=== PATIENT | female | born 1965 | race African-American/Black ===

== ENCOUNTER 2019-07-25 14:48 | Inpatient (IN) | payer MEDICAID ==
[~2019-07-25] VITALS: Ht 163.8 cm; Wt 92.0 kg
[2019-07-25] MEDS ORDERED: VERAPAMIL ER240 MG ORAL (14:58)
--- NOTE | 2019-07-25 15:04 | NUR ---
ED Nurse Note: Pt walked into ED w/ c/o RLE pain that is radiating up to hip for 2 weeks. Pain is 8/10. R thigh has swelling but not hot to touch or redness. Pt also feels as if SOB for 2 weeks, hx of asthma. Pt lungs clear bilateral to auscultation. Pt is alert and orientedx4, ambulatory.
[2019-07-25 15:07] VITALS: BP 190/91
--- NOTE | 2019-07-25 15:09 | NUR ---
ED Nurse Note:\ MD aware BP 190/91. Pt states it is basline BP.
[2019-07-25] MEDS ORDERED: Tylenol #3 tab (300mg/30mg) ORAL ONE (16:00)
--- NOTE | 2019-07-25 16:53 | Emergency Room Report ---
History of Present Illness General Chief Complaint: Pain Source: Patient (Vandana Nicholas) Present Illness HPI 33-year-old female presents to the emergency department complaining of 9 out of 10 severity progressive right thigh pain with associated swelling and "knot" feeling x2 weeks. Patient reports she also felt as though she needed to catch her breath several times throughout the 2 weeks she states at 1 point she even felt little palpitations. That resolved on their own. Patient states she was not overly exerting herself when this happened. Patient reports history of high blood pressure, asthma and anemia. She denies cough or wheezing. She denies fevers or chills. Patient denies any notable insect bites or wounds near the affected area. Patient reports pain is exacerbated upon walking. She denies trauma or fall. She denies smoking hx, recent travel or estrogen use. She denies chest pain, dizziness, syncope or headache. Pt. reports earlier today when she felt SOB she felt a bit lightheaded but both SOB and lightheadedness resolved when she went outside for fresh air. COVID-19 risk:Contact w/high r: No COVID-19 risk:Travel to affect: No Has patient experienced barton: No (Vandana Nicholas) Allergies: Coded Allergies: No Known Allergies (Unverified , 07/25/19) Patient History Past Medical History: see triage record Past Surgical History: none Pertinent Family History: none Reviewed Nursing Documentation: PMH: Agreed; PSxH: Agreed (Vandana Nicholas) Nursing Documentation-PMH Past Medical History: No History, Except For Hx Hypertension: Yes - anemia (Vandana Nicholas) Review of Systems All Other Systems: negative except mentioned in HPI (Vandana Nicholas) Physical Exam Vital Signs Date Time Temp Pulse Resp B/P (MAP) Pulse Ox O2 Delivery O2 Flow Rate FiO2 07/25/19 14:54 98.1 88 18 195/92 (126) 96 Room Air Sp02 EP Interpretation: reviewed, normal General Appearance: no apparent distress, alert, GCS 15, non-toxic Head: normocephalic, atraumatic Eyes: bilateral eye normal inspection, bilateral eye PERRL ENT: hearing grossly normal, normal voice Neck: full range of motion Respiratory: chest non-tender, lungs clear, normal breath sounds, no respiratory distress, no accessory muscle use, no wheezing, speaking full sentences Cardiovascular #1: regular rate, rhythm, no edema, normal capillary refill Cardiovascular #2: 1+ dorsalis pedis (R) - post. tibial Musculoskeletal: normal range of motion, no calf tenderness, gait/station normal, tender - TTP to superficial ttp of the ST of the right medial thigh, swelling - Right inner thigh swelling Neurologic: alert, motor strength/tone normal, oriented x3, sensory intact, responsive, speech normal Psychiatric: judgement/insight normal Skin: other - mild erythema and palpation of rope like induration, mild warmth, Lymphatic: no adenopathy (Vandana Nicholas) Medical Decision Making PA Attestation Dr. Kingston Is my supervising Physician whom patient management has been discussed with. (Vandana Nicholas) Diagnostic Impression: Primary Impression: Pulmonary emboli Qualified Codes: I26.99 - Other pulmonary embolism without acute cor pulmonale Additional Impressions: Acute deep vein thrombosis of thigh Qualified Codes: I82.4Y1 - Acute embolism and thrombosis of unspecified deep veins of right proximal lower extremity Anemia Qualified Codes: D64.9 - Anemia, unspecified ER Course 33-year-old female presents to the emergency department complaining of 9 out of 10 severity progressive right thigh pain with associated swelling and "knot" feeling x2 weeks. Patient reports she also felt as though she needed to catch her breath several times throughout the 2 weeks she states at 1 point she even felt little palpitations. That resolved on their own. Patient states she was not overly exerting herself when this happened. Patient reports history of high blood pressure, asthma and anemia. She denies cough or wheezing. She denies fevers or chills. Patient denies any notable insect bites or wounds near the affected area. Patient reports pain is exacerbated upon walking. She denies trauma or fall. She denies smoking hx, recent travel or estrogen use. She denies chest pain, dizziness, syncope or headache. Pt. reports earlier today when she felt SOB she felt a bit lightheaded but both SOB and lightheadedness resolved when she went outside for fresh air. Ddx considered but are not limited to Cellulitis, DVT,varicose vein,Phlebitis, PAD,Venous insufficiency, femoral hernia, PE, or RI just to name a few. Vital signs: are WNL, pt. is afebrile H&PE are most consistent with possible DVT, Vs., cellulitis/phlebitis ORDERS: -CBC with Diff: Anemia hgb 7.9 -CMP: mildly elevated alk. phos -Troponin: 0.00 -PT/PTT: WNL ------ PT: 9.8. INR: 0.9 PTT: 1.2 -ABO: B POSITIVE Venous Duplex US Right Lower Extremity: POSITIVE FOR ACUTE DVT GREATER SAPHENOUS VEIN. ED INTERVENTIONS: -Tylenol # 3 PO - Heparin 7000 Units - IV Bolus - Heparin Drip : Maintenance -80 mg verapamil p.o. DISPOSITION: at this time pt. will be admitted to Dr. Machuca for bilateral pulmonary emboli in addition to acute DVT of the right lower extremity. Dr. Machuca agreed to admit the pt. and to continue pt. care management. Labs Test 07/25/19 17:01 White Blood Count 8.8 K/UL (4.8-10.8) Red Blood Count 4.40 M/UL (4.20-5.40) Hemoglobin 7.9 G/DL (12.0-16.0) Hematocrit 26.6 % (37.0-47.0) Mean Corpuscular Volume 60 FL (80-99) Mean Corpuscular Hemoglobin 17.9 PG (27.0-31.0) Mean Corpuscular Hemoglobin Concent 29.6 G/DL (32.0-36.0) Red Cell Distribution Width 18.9 % (11.6-14.8) Platelet Count 368 K/UL (150-450) Mean Platelet Volume 8.0 FL (6.5-10.1) Neutrophils (%) (Auto) % (45.0-75.0) Lymphocytes (%) (Auto) % (20.0-45.0) Monocytes (%) (Auto) % (1.0-10.0) Eosinophils (%) (Auto) % (0.0-3.0) Basophils (%) (Auto) % (0.0-2.0) Differential Total Cells Counted 100 Neutrophils % (Manual) 77 % (45-75) Lymphocytes % (Manual) 18 % (20-45) Monocytes % (Manual) 5 % (1-10) Eosinophils % (Manual) 0 % (0-3) Basophils % (Manual) 0 % (0-2) Band Neutrophils 0 % (0-8) Platelet Estimate Adequate Platelet Morphology Normal Hypochromasia 1+ Anisocytosis 1+ Prothrombin Time 9.8 SEC (9.30-11.50) Prothromb Time International Ratio 0.9 (0.9-1.1) Activated Partial Thromboplast Time 22 SEC (23-33) Sodium Level 141 MMOL/L (136-145) Potassium Level 4.0 MMOL/L (3.5-5.1) Chloride Level 105 MMOL/L (98-107) Carbon Dioxide Level 26 MMOL/L (21-32) Anion Gap 11 mmol/L (5-15) Blood Urea Nitrogen 10 mg/dL (7-18) Creatinine 1.1 MG/DL (0.55-1.30) Estimat Glomerular Filtration Rate > 60 mL/min (>60) Glucose Level 89 MG/DL (74-106) Calcium Level 9.2 MG/DL (8.5-10.1) Total Bilirubin 0.5 MG/DL (0.2-1.0) Aspartate Amino Transf (AST/SGOT) 23 U/L (15-37) Alanine Aminotransferase (ALT/SGPT) 11 U/L (12-78) Alkaline Phosphatase 118 U/L (46-116) Troponin I 0.000 ng/mL (0.000-0.056) Total Protein 8.1 G/DL (6.4-8.2) Albumin 3.5 G/DL (3.4-5.0) Globulin 4.6 g/dL Albumin/Globulin Ratio 0.8 (1.0-2.7) (Vandana Nicholas) ER Course Please see above note. Patient examined by me. I was directly involved with her care and treatment. Heparin begun. Discussed with CHIOMA NOBLE and patient non-transferrable. Discussed with Dr. Machuca. (Mohsen Kingston MD) EKG Diagnostic Results EP Interpretation: Dr. Kingston Rate: normal - 75 bpm Rhythm: NSR ST Segments: no acute changes ASA given to the pt in ED: No PA Scribe Text This Interpretation was scribed by YURIY Nicholas. (aVndana Nicholas) Rhythm Strip Diag. Results EP Interpretation: yes Rhythm: NSR, no PVC's, no ectopy (Mohsen Kingston MD) CT/MRI/US Diagnostic Results CT/MRI/US Diagnostic Results #1: Imaging Test Ordered: Venous Duplex US Right LE Impression ! POSITIVE for Acute DVT of the great saphenous vein. CT/MRI/US Diagnostic Results #2: Imaging Test Ordered: CTA Chest w. contrast. Impression " Segmental left and segmental right lower lobe pulmonary emboli. No evidence of right heart strain. Incidental finding of right hydronephrosis." Per official radiology report- Please see report for specific details. (Vandana Nicholas) Last Vital Signs Date Time Temp Pulse Resp B/P (MAP) Pulse Ox O2 Delivery O2 Flow Rate FiO2 07/25/19 15:07 98.1 79 20 190/91 97 Room Air (Vandana Nicholas) Last Vital Signs Date Time Temp Pulse Resp B/P (MAP) Pulse Ox O2 Delivery O2 Flow Rate FiO2 07/26/19 00:21 67 21 150/87 98 Room Air 07/25/19 18:19 98.1 Status: improved (Mohsen Kingston MD) Disposition: ADMITTED INPATIENT Condition: Serious Referrals: [facility],REFERRING (PCP) Vandana Nicholas Jul 25, 2019 16:53 Mohsen Kingston MD Jul 25, 2019 19:40
[2019-07-25] MEDS ORDERED: Omnipaque 350 100ml vial INJ PRN (17:15)
--- NOTE | 2019-07-25 17:21 | Diagnostic Imaging Report ---
EXAM: US Duplex Right Lower Extremity Veins CLINICAL HISTORY: PAIN TECHNIQUE: Real-time duplex ultrasound scan of the right lower extremity veins integrating B-mode two-dimensional vascular structure, Doppler spectral analysis, color flow Doppler imaging and compression. COMPARISON: No relevant prior studies available. FINDINGS: Deep veins: Unremarkable. No DVT in the visualized common femoral, femoral, proximal deep femoral or popliteal veins. The veins demonstrate normal color flow, are normally compressible, with normal phasic flow and/or augmentation response. Superficial veins: Right greater saphenous venous thrombosis. Clot extends to the right common femoral vein, slightly protruding into the CFV. This may qualify as a DVT from a management perspective. IMPRESSION: Right greater saphenous venous thrombosis. Clot extends to the right common femoral vein, slightly protruding into the CFV. This may qualify as a DVT from a management perspective. <MYCVCSECTION> Communications: 07/25/19 17:36 Verify Receipt Verified receipt with Olga in ER confirmed with YURIY Nicholas on 07/24 17:36 (-07:00)
[2019-07-25 17:23] LABS: HEMATOCRIT 26.6 % (37.0-47.0); HEMOGLOBIN 7.9 G/DL (12.0-16.0); MEAN CORPUSCULAR VOLUME 60 FL (80-99); PLATELET COUNT 368 K/UL (150-450); RED CELL DISTRIBUTION WIDTH 18.9 % (11.6-14.8); WHITE BLOOD COUNT 8.8 K/UL (4.8-10.8)
[2019-07-25 17:28] LABS: INR 0.9 (0.9-1.1)
[2019-07-25 17:30] LABS: ANION GAP 11 mmol/L (5-15); BLOOD UREA NITROGEN 10 mg/dL (7-18); CALCIUM 9.2 MG/DL (8.5-10.1); CARBON DIOXIDE 26 MMOL/L (21-32); CHLORIDE 105 MMOL/L (98-107); CREATININE 1.1 MG/DL (0.55-1.30); SODIUM 141 MMOL/L (136-145)
[2019-07-25 17:35] LABS: ALANINE AMINOTRANSFERASE 11 U/L (12-78); ALBUMIN 3.5 G/DL (3.4-5.0); ALBUMIN/GLOBULIN RATIO 0.8 (1.0-2.7); ALKALINE PHOSPHATASE 118 U/L (46-116); ASPARTATE AMINO TRANSFERASE 23 U/L (15-37); BILIRUBIN,TOTAL 0.5 MG/DL (0.2-1.0)
--- NOTE | 2019-07-25 17:43 | NUR ---
ED Nurse Note: Pt taken to CTA.
[2019-07-25 18:19] VITALS: BP 189/90
--- NOTE | 2019-07-25 18:50 | Diagnostic Imaging Report ---
EXAM: CT Angiography Chest With Intravenous Contrast CLINICAL HISTORY: PAIN TECHNIQUE: Axial computed tomographic angiography images of the chest with intravenous contrast. CTDI is 56.6 mGy and DLP is 332.6 mGy-cm. One or more of the following dose reduction techniques were used: automated exposure control, adjustment of the mA and/or kV according to patient size, use of iterative reconstruction technique. MIP reconstructed images were created and reviewed. COMPARISON: No relevant prior studies available. FINDINGS: Pulmonary arteries: Segmental left and subsegmental right lower lobe pulmonary emboli. Aorta: No acute findings. No thoracic aortic aneurysm. Lungs: Unremarkable. No mass. No consolidation. Pleural space: Unremarkable. No significant effusion. No pneumothorax. Heart: Unremarkable. No cardiomegaly. No significant pericardial effusion. No evidence of RV dysfunction. Bones/joints: No acute fracture. No dislocation. Soft tissues: Limited assessment of the upper abdomen demonstrates right hydronephrosis of uncertain chronicity. Correlate for flank pain.. Lymph nodes: Unremarkable. No enlarged lymph nodes. IMPRESSION: Segmental left and subsegmental right lower lobe pulmonary emboli. No evidence of right heart strain. Right hydronephrosis of uncertain chronicity. Correlate for flank pain. <MYCVCSECTION> Communications: 07/25/19 18:42 Call Doctor Regarding Pulmonary Embolism, called Dr. Nicholas on 07/24 18:42 (-07:00)
--- NOTE | 2019-07-25 18:52 | NUR ---
HAND-OFF: Report given to Olga VALENTIN.
[2019-07-25] MEDS ORDERED: Heparin 5000 units/ml inj IV ONE (19:00)
--- NOTE | 2019-07-25 19:15 | NUR ---
ED Nurse Note: received report from Lyric VALENTIN. pt livs, kayden. will continue to monitor patient.
[2019-07-25 20:00] VITALS: BP 173/82
[2019-07-25] MEDS ORDERED: Heparin 25,000u/D5W 500ml 500 ML IV SCH (20:15)
[2019-07-25] MEDS ORDERED: Verapamil 80mg tab ORAL ONE (20:15)
[2019-07-25 22:00] VITALS: BP 157/77
--- NOTE | 2019-07-25 22:13 | NUR ---
ED Nurse Note: pt is placed on hospital bed. karen, kayden.
[2019-07-26 00:21] VITALS: BP 150/87
[2019-07-26] MEDS ORDERED: HYDROcodone/Acetamin 5/325 tab ORAL ONE (01:30)
--- NOTE | 2019-07-26 03:36 | NUR ---
ED Nurse Note: PTT RESULTED. PER HEPARIN DRIP PROTOCOL, RATE WILL NOT BE CHANGED. ERMD NOTIFIED OF THE RESULT. WILL CONTINUE TO MONITOR PATIENT.
[2019-07-26 04:00] VITALS: BP 124/59
--- NOTE | 2019-07-26 04:30 | NUR ---
Note mary in EDM - 07/26/19 at 0529 by [email or web address] ED Nurse Note: pt is placed on hospital bed. kayden jones.
[2019-07-26 07:00] VITALS: BP 148/73
--- NOTE | 2019-07-26 07:11 | NUR ---
HAND-OFF: Report given to Reba Christian RN. Endorsed plan of care
--- NOTE | 2019-07-26 07:41 | NUR ---
ED Nurse Note: Received pt from Ren Ramirez RN. Pt on rufus bed, awake and alert, VSS, afebrile. Pt denies any feeling of pain nor discomfort.
--- NOTE | 2019-07-26 07:56 | NUR ---
ED Nurse Note: Ordered PTT recheck at 0820.
--- NOTE | 2019-07-26 08:20 | NUR ---
ED Nurse Note: Obtained blood specimen for PTT; sent to labs.
--- NOTE | 2019-07-26 08:50 | NUR ---
TRANSFER TO FLOOR: Patient transferred to Telemetry Unit as ordered, per Dr. Daigle. Report given to Fer VALENTIN. Belongings and medications given to primary RN. Family and or S/O informed of transfer.
--- NOTE | 2019-07-26 09:10 | NUR ---
NURSE NOTES: Received report from HOMERO Velazquez. Patient AOx4, on room air, denies pain at this time. Patient transferred from ED to tele. Belonging list checked with RN, Patient has leija at the bedside, refused to put in safe, per patient "It's my sister's rent money, she will pick it up". Endorsed heparin drip since last night. Patient SR with HR 71. compliance monitor on, IV on left AC 20G, asymptomatic, patent, intact. Bed in lowest position, side rails upx2, call light within reach. Will continue to monitor.
[2019-07-26] MEDS ORDERED: FERROUS SULFAT325 MG ORAL (09:14)
--- NOTE | 2019-07-26 09:20 | NUR ---
NURSE NOTES: Patient Aox4, educated for PE and DVT on the leg, RN informed and educated ambulation at this time may risk clot to travel.
--- NOTE | 2019-07-26 10:15 | NUR ---
NURSE NOTES: Paged Dr. Machuca for admission order. Order noted, entered, carried out. Per MD continue heparin drip per pharmacy. Will continue to monitor. Confirmed with pharmacist regard PTT, since last PTT 0820 07/26/19 was therapeutic next PTT will be tomorrow am. Order entered, carried out.
[2019-07-26] MEDS ORDERED: Heparin 25,000u/D5W 500ml 500 ML IV SCH (10:20)
[2019-07-26 12:00] VITALS: BP 158/91
--- NOTE | 2019-07-26 12:59 | History and Physical Report ---
DATE OF ADMISSION: 07/26/2019 HISTORY OF PRESENT ILLNESS: This is a 53-year-old female, who came to the hospital with right calf and thigh pain. She states that the pain began about two weeks ago with pain below the knee. She denies any history of immobilization, trauma, or surgery. There is no history of travel. She came massaging her calf and knee. However, yesterday she felt that the pain got worse and progressed to her thigh. She then became short of breath. She came to the emergency room where she was worked up. She was found evidence of a DVT in the right lower extremity as well as bilateral pulmonary emboli. The patient has a history of hypertension and a remote history of anemia for which she was transfused three years ago. She is unclear about the origin of her anemia. She also reports history of asthma. Travel history, none. Fever and cough, none. HOME MEDICATIONS: Include verapamil. ALLERGIES: None reported. REVIEW OF SYSTEMS: Denies any headaches, hematemesis, melena, hematochezia, or weight loss. PAST SURGICAL HISTORY: None. PHYSICAL EXAMINATION: GENERAL: Reveals a 53-year-old female. VITAL SIGNS: Blood pressure is 140/70, heart rate is 74, respirations 20, O2 saturation 100% on room air. HEENT: Unremarkable. LUNGS: Clear breath sounds bilaterally with normal heart sounds. ABDOMEN: Soft. EXTREMITIES: There is no edema. Right lower extremity is mildly tender. LABORATORY DATA: Lab testing shows a hemoglobin 7.8, otherwise normal CBC and BMP. Alkaline phosphatase 118. Imaging studies show venous duplex with right greater saphenous vein thrombosis with the clot extending in the right common femoral vein into the common femoral vein. She also underwent a CT of the chest with IV contrast, which shows segmental left and subsegmental right old pulmonary emboli. IMPRESSION: 1. DVT. 2. Pulmonary embolism. 3. History of anemia. 4. Hypertension. DISCUSSION: Admit to the hospital. We will start intravenous heparin. We will consult Hematology. Continue hypertensives. We will follow carefully. Jose Antonio Machuca M.D. DR: JOSE/ROBERT JOB#: [id number] CC:
[2019-07-26 16:00] VITALS: BP 135/87
--- NOTE | 2019-07-26 16:00 | NUR ---
NURSE NOTES: Paged Dr. Machuca regarding patient c/o headache 01/13, constant. Awaiting for callback. Will continue to monitor.
--- NOTE | 2019-07-26 16:42 | NUR ---
NURSE NOTES: Per Dr. Machuca Tylenol q6h, 650mg PO, Order noted, entered, carried out. Per MD not recommend strong pain med since patient on heparin Drip.
--- NOTE | 2019-07-26 19:00 | NUR ---
NURSE NOTES: Received report from HOMERO Girard Patient is awake, sitting on bed. A/Ox4. Able to make needs known with assistance. Denies pain at this time. No signs of acute distress noted. Checked IV site and flushed with ongoing heparin drip as prescribed. No erythema, bleeding or infiltration noted. No signs of bleeding noted. Bed at lowest position, brakes on, siderailsx2. Call light within reach. Will continue to monitor.
--- NOTE | 2019-07-26 19:13 | NUR ---
HAND-OFF: Report given to HOMERO Serna. Endorsed plan of care.
[2019-07-26 20:00] VITALS: BP 140/92
--- NOTE | 2019-07-26 21:14 | Consultation ---
History of Present Illness General Chief Complaint: Pain Present Illness Allergies: Coded Allergies: IBUPROFEN (Verified Allergy, Mild, 07/26/19) spasm Medication History Scheduled Ferrous Sulfate* (Ferrous Sulfate*), 325 MG ORAL DAILY, (Reported) Verapamil Hcl* (Calan Sr*), 240 MG ORAL DAILY, (Reported) Patient History Healthcare decision maker Sister Kelley Puentes, Meaghan Buchanan Resuscitation status Full Code Advanced Directive on File Physical Exam Last 24 Hour Vital Signs Date Time Temp Pulse Resp B/P (MAP) Pulse Ox O2 Delivery O2 Flow Rate FiO2 07/26/19 16:00 70 07/26/19 16:00 98.1 81 19 135/87 (103) 95 07/26/19 12:59 65 163/99 07/26/19 12:00 97.7 73 19 158/91 (113) 95 07/26/19 12:00 65 07/26/19 09:21 Room Air 07/26/19 08:50 97.7 71 20 146/74 100 Room Air 07/26/19 07:00 97.7 66 14 148/73 100 Room Air 07/26/19 04:00 98.4 71 20 124/59 98 Room Air 07/26/19 02:10 98.1 07/26/19 00:21 67 21 150/87 98 Room Air 07/25/19 22:00 75 18 157/77 98 Room Air Intake and Output 07/25/19 07/26/19 19:00 07:00 Intake Total 0 ml Balance 0 ml Intake Oral 0 ml Laboratory Tests Test 07/26/19 02:20 07/26/19 08:20 Activated Partial Thromboplast Time 70 SEC (23-33) H 72 SEC (23-33) H Height (Feet): 5 Height (Inches): 4.50 Weight (Pounds): 198 Medications Current Medications Medications (Trade) Dose Ordered Sig/Wesley Route PRN Reason Start Time Stop Time Status Last Admin Dose Admin Acetaminophen (Tylenol) 650 mg Q6H PRN ORAL Mild Pain/Temp > 100.5 07/26/19 16:45 08/25/19 16:44 07/26/19 16:55 Ferrous Sulfate (Feosol) 325 mg DAILY ORAL 07/26/19 12:00 10/24/19 11:59 07/26/19 12:59 Heparin Sodium/ Dextrose 500 ml @ 32.332 mls/ hr ADJUST PER PROTOCOL IV 07/26/19 10:20 08/25/19 10:19 07/26/19 10:34 Verapamil HCl (Calan SR) 240 mg DAILY ORAL 07/26/19 12:00 08/25/19 11:59 07/26/19 12:59 Assessment/Plan Assessment/Plan: Heme Consult MADI MD: Matt Machuca DOS: 07/26/2019 RFC: DVt and PE HPI 33-year-old female presents to the emergency department complaining of 9 out of 10 severity progressive right thigh pain with associated swelling and "knot" feeling x2 weeks. Patient reports she also felt as though she needed to catch her breath several times throughout the 2 weeks she states at 1 point she even felt little palpitations. That resolved on their own. Patient states she was not overly exerting herself when this happened. Patient reports history of high blood pressure, asthma and anemia. She denies cough or wheezing. She denies fevers or chills. Patient denies any notable insect bites or wounds near the affected area. Patient reports pain is exacerbated upon walking. She denies trauma or fall. She denies smoking hx, recent travel or estrogen use. She denies chest pain, dizziness, syncope or headache. Pt. reports earlier today when she felt SOB she felt a bit lightheaded but both SOB and lightheadedness resolved when she went outside for fresh air. Imaging since admission has been reviewed and currently is on heparin gtt, i dw pcp. COVID-19 risk:Contact w/high r: No COVID-19 risk:Travel to affect: No Has patient experienced barton: No Allergies: Coded Allergies: No Known Allergies (Unverified , 07/25/19) Patient History Past Medical History: see triage record Past Surgical History: none Pertinent Family History: none Reviewed Nursing Documentation: PMH: Agreed; PSxH: Agreed (Vandana Nicholas) Nursing Documentation-PMH Past Medical History: No History, Except For Hx Hypertension: Yes - anemia ROS (review of systems): Constitutional: No fever, no chills, no night sweats, no fatigue Skin: No rashes, lumps, itchiness, dryness HEENT: No ALBERTS, ear ache, visual changes, double vision, nosebleeds Breasts: No lumps, pain, discharge Pulmonary: ++ sob is noted on admission Cardiovascular: No chest pain, tightness, palpitations, syncope, PND GI: No nausea, vomiting, diarrhea, melena, hematochezia, change in appetite, : No dysuria, frequency, urgency, urinary incontinence, foamy urine Musculoskeleta ++ lower ext leg swelling Neurologic: No dizziness, fainting, seizures, changes in smell or taste Psychiatric: No nervousness, stress, or depression, anxiety, hallucinations Endocrine: No weight change, heat or cold intolerance, tremor, insomnia Physical Exam: Vitals: reviewed General: NAD HEENT: nc, at Neck: supple Chest: clear breath sounds bilaterally Cardiovascular: RRR, no s3, s4 Abdomen: soft, nontender, nd Extremities: no cce, normal range of motion Neuro: alert and oriented Labs: noted Imaging: reviewed Assessment and Recs # Pulmonary emboli noted on admission with out right heart strain with a likely pre-existing dvt -> CAUSE is yet uncertain, is essentially unprovoked --> this patient, given her young agre requires a hypercoagulable workup --> I have ordered a lupus anticoagulant, she needs to f/u with hematology once out of the acute episdoe --> agree to continue on heparin gtt --> lupus anticoag ordered # Dvt of the lower ext right leg --> continue on heparin gtt --> will need 3 months of anticoag # Anemia of chronic disease due to underlying chronic medical issues, multifactorial v Gi bleed --> Anemia workup has been ordered, rule out gi bleed --> No evidence of hemolysis is noted, peripheral smear has been reviewed. --> Hgb goal >7. Transfuse prn. --> Epogen or iron at this time is not particularly indicated --> Medications have been reviewed --> low threshold for gi evaluation in case has occult + --> bone marrow biopsy is not indicated given the other more likely causes # HTN --> sbp goal <130 # Obesity --> recommend weight loss --> acitivity # Dvt ppx heparn gtt The timing of this note does not necessarily reflect the time of the patient was seen. Greatly appreciate consultation. Farrukh Velasquez MD Jul 26, 2019 21:14
[2019-07-27] VITALS: BP 134/79
--- NOTE | 2019-07-27 01:46 | NUR ---
NURSE NOTES: Resting throughout the night. No significant change of condition noted. Will continue to monitor.
[2019-07-27 04:00] VITALS: BP_SYST 145; BP_SYST 162; BP_DIAS 90
[2019-07-27 04:38] LABS: HEMATOCRIT 25.5 % (37.0-47.0); HEMOGLOBIN 7.6 G/DL (12.0-16.0); MEAN CORPUSCULAR VOLUME 62 FL (80-99); PLATELET COUNT 352 K/UL (150-450); RED BLOOD COUNT 4.12 M/UL (4.20-5.40); RED CELL DISTRIBUTION WIDTH 16.8 % (11.6-14.8); WHITE BLOOD COUNT 7.9 K/UL (4.8-10.8)
[2019-07-27 05:30] LABS: FERRITIN 5 NG/ML (8-388)
--- NOTE | 2019-07-27 06:14 | NUR ---
NURSE NOTES: Received ptt result of 77. Per OM pipeline (Cira), to continue heparin drip @18U/kg/hr, next ptt tomorrow 0400. Noted and carried out.
[2019-07-27 06:29] LABS: % IRON SATURATION 5 % (15-50); IRON 18 ug/dL (50-175); TOTAL IRON BINDING CAPACITY 374 ug/dL (250-450)
--- NOTE | 2019-07-27 06:54 | Hematology/Onc Progress Note ---
Assessment/Plan Assessment/Plan Assessment and Recs # Pulmonary emboli noted on admission with out right heart strain with a likely pre-existing dvt -> CAUSE is yet uncertain, is essentially unprovoked --> this patient, given her young agre requires a hypercoagulable workup --> I have ordered a lupus anticoagulant, she needs to f/u with hematology once out of the acute episdoe --> agree to continue on heparin gtt --> lupus anticoag ordered, prothrombin, antithrombin # Dvt of the lower ext right leg --> continue on heparin gtt --> will need 3 months of anticoag --> consider apixaban as an outpatient for 3months once discharged if approved by pillowcase folder # Anemia of iron deficiency --> Anemia workup has been ordered, rule out gi bleed --> No evidence of hemolysis is noted, peripheral smear has been reviewed. --> Hgb goal >7. Transfuse prn. --> IRON IV x 5 days --> Medications have been reviewed --> low threshold for gi evaluation in case has occult + --> bone marrow biopsy is not indicated given the other more likely causes --> continue on po iron # HTN --> sbp goal <130 # Obesity --> recommend weight loss --> acitivity # Dvt ppx heparn gtt The timing of this note does not necessarily reflect the time of the patient was seen. Greatly appreciate consultation. Subjective Constitutional: Denies: no symptoms, chills, fever, malaise, weakness, other HEENT: Denies: no symptoms, eye pain, blurred vision, tearing, double vision, ear pain, ear discharge, nose pain, nose congestion, throat pain, throat swelling, mouth pain, mouth swelling, other Cardiovascular: Denies: no symptoms, chest pain, edema, irregular heart rate, lightheadedness, palpitations, syncope, other Gastrointestinal/Abdominal: Denies: no symptoms, abdomen distended, abdominal pain, black stools, tarry stools, blood in stool, constipated, diarrhea, difficulty swallowing, nausea, poor appetite, poor fluid intake, rectal bleeding , vomiting, other Genitourinary: Denies: no symptoms, burning, discharge, frequency, flank pain, hematuria, incontinence, pain, urgency, other Neurologic/Psychiatric: Denies: no symptoms, anxiety, depressed, emotional problems, headache, numbness, paresthesia, pre-existing deficit, seizure, tingling, tremors, weakness, other Endocrine: Denies: no symptoms, excessive sweating, flushing, intolerance to cold, intolerance to heat, increased hunger, increased thirst, increased urine, unexplained weight gain, unexplained weight loss, other Allergies: Coded Allergies: IBUPROFEN (Verified Allergy, Mild, 07/26/19) spasm Subjective 07/26 on heparin gtt, no bleeding, no night sweats, considering apixaban as outpatient Objective Objective Current Medications Medications (Trade) Dose Ordered Sig/Wesley Route PRN Reason Start Time Stop Time Status Last Admin Dose Admin Acetaminophen (Tylenol) 650 mg Q6H PRN ORAL Mild Pain/Temp > 100.5 07/26/19 16:45 08/25/19 16:44 07/26/19 16:55 Ferrous Sulfate (Feosol) 325 mg DAILY ORAL 07/26/19 12:00 10/24/19 11:59 07/26/19 12:59 Heparin Sodium/ Dextrose 500 ml @ 32.332 mls/ hr ADJUST PER PROTOCOL IV 07/26/19 10:20 08/25/19 10:19 07/26/19 10:34 Verapamil HCl (Calan SR) 240 mg DAILY ORAL 07/26/19 12:00 08/25/19 11:59 07/26/19 12:59 Last 24 Hour Vital Signs Date Time Temp Pulse Resp B/P (MAP) Pulse Ox O2 Delivery O2 Flow Rate FiO2 07/27/19 04:00 85 07/27/19 04:00 97.7 72 20 145/90 (108) 98 07/27/19 00:00 79 07/27/19 00:00 96.8 69 20 134/79 (97) 99 07/26/19 21:00 Room Air 07/26/19 20:00 98.1 69 20 140/92 (108) 99 07/26/19 20:00 71 07/26/19 16:00 70 07/26/19 16:00 98.1 81 19 135/87 (103) 95 07/26/19 12:59 65 163/99 07/26/19 12:00 97.7 73 19 158/91 (113) 95 07/26/19 12:00 65 07/26/19 09:21 Room Air 07/26/19 08:50 97.7 71 20 146/74 100 Room Air 07/26/19 07:00 97.7 66 14 148/73 100 Room Air 07/26/19 04:00 98.4 71 20 124/59 98 Room Air 07/26/19 02:10 98.1 07/26/19 00:21 67 21 150/87 98 Room Air 07/25/19 22:00 75 18 157/77 98 Room Air 07/25/19 20:43 65 195/85 07/25/19 20:00 67 21 173/82 98 Room Air 07/25/19 18:19 98.1 78 21 189/90 98 Room Air 07/25/19 16:49 98.1 07/25/19 15:07 98.1 79 20 190/91 97 Room Air 07/25/19 14:54 98.1 88 18 195/92 (126) 96 Room Air Intake and Output 07/26/19 07/27/19 19:00 07:00 Intake Total 240 ml 655.63 ml Balance 240 ml 655.63 ml Intake Oral 240 ml 300 ml IV Total 355.63 ml # Voids 2 1 Labs Test 07/25/19 17:01 07/26/19 02:20 07/26/19 08:20 07/27/19 04:15 White Blood Count 8.8 K/UL (4.8-10.8) 7.9 K/UL (4.8-10.8) Red Blood Count 4.40 M/UL (4.20-5.40) 4.12 M/UL (4.20-5.40) Hemoglobin 7.9 G/DL (12.0-16.0) 7.6 G/DL (12.0-16.0) Hematocrit 26.6 % (37.0-47.0) 25.5 % (37.0-47.0) Mean Corpuscular Volume 60 FL (80-99) 62 FL (80-99) Mean Corpuscular Hemoglobin 17.9 PG (27.0-31.0) 18.4 PG (27.0-31.0) Mean Corpuscular Hemoglobin Concent 29.6 G/DL (32.0-36.0) 29.7 G/DL (32.0-36.0) Red Cell Distribution Width 18.9 % (11.6-14.8) 16.8 % (11.6-14.8) Platelet Count 368 K/UL (150-450) 352 K/UL (150-450) Mean Platelet Volume 8.0 FL (6.5-10.1) 6.8 FL (6.5-10.1) Neutrophils (%) (Auto) % (45.0-75.0) % (45.0-75.0) Lymphocytes (%) (Auto) % (20.0-45.0) % (20.0-45.0) Monocytes (%) (Auto) % (1.0-10.0) % (1.0-10.0) Eosinophils (%) (Auto) % (0.0-3.0) % (0.0-3.0) Basophils (%) (Auto) % (0.0-2.0) % (0.0-2.0) Differential Total Cells Counted 100 Neutrophils % (Manual) 77 % (45-75) Lymphocytes % (Manual) 18 % (20-45) Monocytes % (Manual) 5 % (1-10) Eosinophils % (Manual) 0 % (0-3) Basophils % (Manual) 0 % (0-2) Band Neutrophils 0 % (0-8) Platelet Estimate Adequate Platelet Morphology Normal Hypochromasia 1+ Anisocytosis 1+ Prothrombin Time 9.8 SEC (9.30-11.50) Prothromb Time International Ratio 0.9 (0.9-1.1) Activated Partial Thromboplast Time 22 SEC (23-33) 70 SEC (23-33) 72 SEC (23-33) 77 SEC (23-33) Sodium Level 141 MMOL/L (136-145) Potassium Level 4.0 MMOL/L (3.5-5.1) Chloride Level 105 MMOL/L (98-107) Carbon Dioxide Level 26 MMOL/L (21-32) Anion Gap 11 mmol/L (5-15) Blood Urea Nitrogen 10 mg/dL (7-18) Creatinine 1.1 MG/DL (0.55-1.30) Estimat Glomerular Filtration Rate > 60 mL/min (>60) Glucose Level 89 MG/DL (74-106) Calcium Level 9.2 MG/DL (8.5-10.1) Total Bilirubin 0.5 MG/DL (0.2-1.0) Aspartate Amino Transf (AST/SGOT) 23 U/L (15-37) Alanine Aminotransferase (ALT/SGPT) 11 U/L (12-78) Alkaline Phosphatase 118 U/L (46-116) Troponin I 0.000 ng/mL (0.000-0.056) Total Protein 8.1 G/DL (6.4-8.2) Albumin 3.5 G/DL (3.4-5.0) Globulin 4.6 g/dL Albumin/Globulin Ratio 0.8 (1.0-2.7) Iron Level 18 ug/dL (50-175) Total Iron Binding Capacity 374 ug/dL (250-450) Percent Iron Saturation 5 % (15-50) Unsaturated Iron Binding 356 ug/dL (112-346) Ferritin 5 NG/ML (8-388) Vitamin B12 Level 397 PG/ML (193-986) Height (Feet): 5 Height (Inches): 4.50 Weight (Pounds): 198 Objective Physical Exam: Vitals: reviewed General: NAD HEENT: nc, at Neck: supple Chest: clear breath sounds bilaterally Cardiovascular: RRR, no s3, s4 Abdomen: soft, nontender, nd Extremities: no cce, normal range of motion Neuro: alert and oriented Farrukh Velasquez MD Jul 27, 2019 06:54
--- NOTE | 2019-07-27 07:00 | NUR ---
HAND-OFF: Report given to HOMERO Girard. Plan of care endorsed.
--- NOTE | 2019-07-27 07:16 | NUR ---
NURSE NOTES: Received report from HOMERO Serna. Patient in bed resting, no active s/s cardiac, respiratory distress noticed at this time. AOx4, denies pain at this time, on room air. IV on left AC 20G, asymptomatic, patent, intact. Heparin drip at 18 unit/kg/hr at rate of 32.332ml/h. Endorsed next PTT 07/28/19 at 0400. Bed in lowest position, side rails upx2, call light within reach, bed alarm on. Will continue to monitor.
[2019-07-27 08:00] VITALS: BP 166/96
--- NOTE | 2019-07-27 09:57 | NUR ---
*-* INSURANCE *-* ALL CLINICALS AND REVIEWS HAVE BEEN FAXED TO: ROBB PALENCIA P: [phone] F: [phone] FAX ALL CLINICALS HERE AND TO [employer] [phone] & [facility] [phone]
--- NOTE | 2019-07-27 10:12 | Pulmonology Progress Note ---
Assessment/Plan Assessment/Plan IMPRESSION: 1. DVT. 2. Pulmonary embolism. 3. History of anemia. 4. Hypertension. DISCUSSION: Discussed with hematology Dc home PO Melissa Outpt followup Jose Antonio Machuca M.D. Subjective Interval Events: No SOB; feeling better Constitutional: Reports: no symptoms HEENT: Repors: no symptoms Respiratory: Reports: no symptoms Cardiovascular: Reports: no symptoms Gastrointestinal/Abdominal: Reports: no symptoms Allergies: Coded Allergies: IBUPROFEN (Verified Allergy, Mild, 07/26/19) spasm Objective Last 24 Hour Vital Signs Date Time Temp Pulse Resp B/P (MAP) Pulse Ox O2 Delivery O2 Flow Rate FiO2 07/27/19 09:00 Room Air 07/27/19 08:25 70 166/96 07/27/19 08:00 98.6 70 20 166/96 (119) 97 07/27/19 08:00 67 07/27/19 04:00 85 07/27/19 04:00 97.7 72 20 145/90 (108) 98 07/27/19 00:00 79 07/27/19 00:00 96.8 69 20 134/79 (97) 99 07/26/19 21:00 Room Air 07/26/19 20:00 98.1 69 20 140/92 (108) 99 07/26/19 20:00 71 07/26/19 16:00 70 07/26/19 16:00 98.1 81 19 135/87 (103) 95 07/26/19 12:59 65 163/99 07/26/19 12:00 97.7 73 19 158/91 (113) 95 07/26/19 12:00 65 Intake and Output 07/26/19 07/27/19 19:00 07:00 Intake Total 240 ml 687.96 ml Balance 240 ml 687.96 ml Intake Oral 240 ml 300 ml IV Total 387.96 ml # Voids 2 1 General Appearance: no acute distress HEENT: normocephalic Respiratory/Chest: chest wall non-tender Cardiovascular: normal peripheral pulses Abdomen: normal bowel sounds Laboratory Tests 07/27/19 04:15: White Blood Count 7.9, Red Blood Count 4.12L, Hemoglobin 7.6L, Hematocrit 25.5L , Mean Corpuscular Volume 62L, Mean Corpuscular Hemoglobin 18.4L, Mean Corpuscular Hemoglobin Concent 29.7L, Red Cell Distribution Width 16.8H, Platelet Count 352, Mean Platelet Volume 6.8, Neutrophils (%) (Auto) , Lymphocytes (%) (Auto) , Monocytes (%) (Auto) , Eosinophils (%) (Auto) , Basophils (%) (Auto) , Reticulocyte Count [Pending], Activated Partial Thromboplast Time 77H, Lupus Anticoagulant [Pending], Lupus Anticoagulant PTT Baseline [Pending], Lupus Anticoag DRVVT Screen Ratio [Pending], DRVVT Confirmation Interpretation [Pending], Hexagonal Phase Comment [Pending], Anti- Thrombin III Activity [Pending], Prothrombin Gene Mutation [Pending], Prothrombin Gene Shared Component [Pending], Iron Level 18L, Total Iron Binding Capacity 374, Percent Iron Saturation 5L, Unsaturated Iron Binding 356H, Ferritin 5L, Vitamin B12 Level 397 Current Medications Medications (Trade) Dose Ordered Sig/Wesley Route PRN Reason Start Time Stop Time Status Last Admin Dose Admin Acetaminophen (Tylenol) 650 mg Q6H PRN ORAL Mild Pain/Temp > 100.5 07/26/19 16:45 08/25/19 16:44 07/26/19 16:55 Ferrous Sulfate (Feosol) 325 mg DAILY ORAL 07/26/19 12:00 10/24/19 11:59 07/27/19 08:25 Heparin Sodium/ Dextrose 500 ml @ 32.332 mls/ hr ADJUST PER PROTOCOL IV 07/26/19 10:20 08/25/19 10:19 07/26/19 10:34 Verapamil HCl (Calan SR) 240 mg DAILY ORAL 07/26/19 12:00 08/25/19 11:59 07/27/19 08:25 Jose Antonio Machuca MD Jul 27, 2019 10:12
[2019-07-27] MEDS ORDERED: ELIQUIS5 MG PO (10:15)
--- NOTE | 2019-07-27 10:52 | NUR ---
NURSE NOTES: Paged Dr. Velasquez regard patient is on heaprin drip, Dr. Machuca would like to discharge patient on Eliquis. Per MD, okay to discontinue heparin drip now and okay to discharge. Order noted, entered, carried out.
[2019-07-27 12:00] VITALS: BP 146/78
--- NOTE | 2019-07-27 13:09 | NUR ---
NURSE NOTES: Patient discharged to home per Dr. Machuca. monitoring tech returned to vehicle monitor technician, IV removed, ID band removed and placed in shredder. Patient discharged with all belongings in a stable condition. Patient going home with private vehicle. Prescription for Eliquis provided to the patient. Medication, Eliquis, delivered from [facility]. Patient educated and informed regard medication, frequency, dosages, risk and benefit.
--- NOTE | 2019-07-27 14:02 | NUR ---
CASE MANAGEMENT:REVIEW 53 YR OLD FEMALE PRESENTED TO ER CC: RLE PAIN RADIATING TO HIP X2 WEEKS SI:PULMONARY EMBOLI. ANEMIA. ACUTE DVT OF THIGH 98.1 88 18 195/92 96% ON RA H/H-7.9/26.6 IS: TYLENOL PO HEPARIN GTT VERAPAMIL PO PERCOCET PO CTA CHEST : TO TELEMETRY DCP: FROM HOME 07/27/19 DISCHARGE HOME WITH OSVALDO
--- NOTE | 2019-07-28 10:22 | Discharge Summary ---
Discharge Summary Discharge Summary _ DATE OF ADMISSION: 07/26/2019 DATE OF DISCHARGE: 07/27/2019 DISCHARGED BY: Dr. Machuca REASON FOR ADMISSION: 53 years old female with past medical history of hypertension, asthma, anemia, status post transfusion 3 years ago, presented to the hospital complaining of right calf and thigh pain. Patient reported thta pain began about 2 weeks ago with pain initially below the knee. She denied any history of immobilization, trauma or surgery. No history of traveling. Pain was getting worse and progressed to her thigh. Patient reported being short of breath . Patient came to emergency room for evaluation . Venous duplex bilateral lower extremity revealed right greater saphenous venous thrombosis. Clot extends to the right common femoral vein .. CTA of the chest revealed segmental left and subsegmental right lower lobe pulmonary emboli. No evidence of right heart strain. Laboratory work-up revealed no leukocytosis , hemoglobin 7.9, hematocrit 26.6 , platelet count 368. INR 0.9. Stable electrolytes and renal parameters. Troponin negative. Patient admitted to telemetry floor for DVT right lower extremity and bilateral pulmonary emboli to start anticoagulation. CONSULTANTS: high school agriculture teacher/oncologist Dr. Velasquez [facility] H[facility]PITAL COURSE: Patient admitted to telemetry floor and started on intravenous heparin. Blood pressure was managed with verapamil. Given patient age and no risk factors, high school agriculture teacher recommended hypercoagulability work-up , which can be done as outpatient with high school agriculture teacher. Patient will need 3 months of anticoagulation. Hemoglobin and hematocrit were closely monitored with goal to keep hemoglobin above 7. Anemia work-up revealed findings consistent woth anemia of iron deficiency: ferritin 5 and iron 18. Patient started on oral iron supplement to be continued as outpatient. No evidence of hemolysis noted. Prior to discharge hemoglobin 7.6, hematocrit 25.5. Supplemental oxygen was on board as needed to keep pulse oximetry above 92%. Pulse oximetry remained stable on room air. Patient clinically stabilized and was ready for discharge home on oral Eliquis and iron supplement. Due to rapid and unexpected improvement in patient condition , patient was discharged in 1 day. FINAL DIAGNOSES: Bilateral pulmonary emboli DVT right lower extremity Iron deficiency anemia Hypertension Obesity DISCHARGE MEDICATIONS: See Medication Reconciliation list. DISCHARGE INSTRUCTIONS: Patient was discharged home. Patient to follow-up with high school agriculture teacher as outpatient for hypercoagulability work-up . work-up. Patient to follow-up with a primary care provider in 1 week. Monitor hemoglobin and hematocrit. I have been assigned to dictate discharge summary for this account. I was not involved in the patient's management. Crystal Kapoor NP Jul 28, 2019 10:22
--- NOTE | 2019-07-29 14:08 | NUR ---
*-* INSURANCE *-* [id number] SUMMARY HAS BEEN FAXED TO: ROBB PALENCIA P: [phone] F: [phone] FAX ALL CLINICALS HERE AND TO [email or web address] [phone] & [facility] FA[facility] TO [phone]
== END 2019-07-27 13:47 | disposition home or self-care (01) | DRG 197 ==
LOC: EMR 16:07 → EDBEDREQ 18:46 → EDBEDREQSVC 18:46 → EDBEDREQ 07-26 06:16 → 2E 07-26 07:44
DX: I82.491 Acute embolism and thrombosis of other specified deep vein of right lower extremity (principal); I26.99 Other pulmonary embolism without acute cor pulmonale; D50.9 Iron deficiency anemia, unspecified; I10 Essential (primary) hypertension; E66.9 Obesity, unspecified; Z88.6 Allergy status to analgesic agent; J45.909 Unspecified asthma, uncomplicated
CPT/HCPCS: 36415; 71275; 80053; 82140; 82607; 82728; 83540; 83550; 84484; 85007; 85025; 85044; 85060; 85300; 85610; 85613; 85730; 86850; 86870; 86900; 86901; 93005; 93971; 96374; 99285